=== PATIENT | female | born 1955 | race Caucasian/White ===

== ENCOUNTER → 2025-03-15 | Outpatient (CLI) | payer MEDICARE ==
--- NOTE | 2025-03-16 01:25 | HMCIMG ---
EXAM: CR right Shoulder, 2 View. CLINICAL HISTORY: PAIN IN RIGHT SHOULDER COMPARISON: None provided. FINDINGS: BONES: An inferior humeral head osteophyte is seen. No acute fracture or aggressively appearing osseous lesion. JOINTS: Narrowing of the gleno-humeral joint space. No dislocation. The acromio-clavicular joint space is normal. SOFT TISSUES: The soft tissues are unremarkable. MISCELLANEOUS: Surgical clips in the right hemithorax. IMPRESSION: 1. No acute osseous injury. 2. Narrowing of the gleno-humeral joint space and an inferior humeral head osteophyte; these findings are consistent with osteoarthritis of the glenohumeral joint. /[place]
== END | disposition home or self-care (01) ==
LOC: RAH 13:44
PROVIDERS: ATTEND Physical Medicine & Rehabilitation
DX: C50.919 Malignant neoplasm of unspecified site of unspecified female breast (principal); M25.511 Pain in right shoulder; M25.711 Osteophyte, right shoulder; M25.811 Other specified joint disorders, right shoulder
CPT/HCPCS: 73030